=== PATIENT | female | born 2000 | race Caucasian/White ===

== ENCOUNTER 2023-01-28 16:05 | Emergency (ER) | payer MEDICAID ==
[~2023-01-28] VITALS: Ht 154.9 cm; Wt 54.0 kg
[2023-01-28 16:32] VITALS: TEMP 98.4; O2SAT 99
[2023-01-28 19:00] VITALS: BP 124/68; PULSE 84; RESP 18
[2023-01-28] MEDS ORDERED: IBUPROFEN 600MG TABLET PO ONE (19:00)
[2023-01-28] MEDS ORDERED: LIDOCAINE HCL/EPINEPHRINE 1%-EPI 1:100,000 20 ML VIAL INFIL ONE (19:00)
[2023-01-28] MEDS ORDERED: TETANUS, DIPHTHERIA, PERTUSSIS VAC/PF 0.5ML (>10YR OLD) IM ONE (19:00)
[2023-01-28] MEDS ORDERED: BACITRACIN ZINC OINT UDPKT TOP ONE (19:00)
[2023-01-28] MEDS ORDERED: TOPUD MT (20:27)
== END 2023-01-28 22:46 | disposition home or self-care (01) ==
LOC: ER 16:05
DX: S61.412A Laceration without foreign body of left hand, initial encounter (principal); V89.2XXA Person injured in unspecified motor-vehicle accident, traffic, initial encounter; Y93.89 Activity, other specified; Y92.89 Other specified places as the place of occurrence of the external cause; Y99.8 Other external cause status
CPT/HCPCS: 71045; 73110; 73130; 90715; 12002; 29125; 99284; J3490; Z7610